=== PATIENT | male | born 1970 | race Caucasian/White ===

== ENCOUNTER 2022-11-01 17:58 | Inpatient (IN) ==
[2022-11-01] MEDS ORDERED: SODIUM CHLORIDE 0.9% 1000ML 1,000 ML IV ONE (18:22)
[2022-11-01 18:44] LABS: Basophils # (auto) 0.06 K/uL (0-0.2); Basophils % (auto) 0.8 %; Eosinophils # (auto) 0.14 K/uL (0-0.50); Eosinophils % (auto) 1.8 %; Hematocrit (blood only) 41.5 % (40.1-51.0); Hemoglobin 14.4 g/dl (14.0-18.0); Immature Granulocytes # (auto) 0.04 K/uL (0.00-0.02); Immature Granulocytes % (auto) 0.5 %; Lymphocytes # (auto) 2.35 K/uL (1.2-3.4); Lymphocytes % (auto) 30.1 %; Mean Corpuscular Hemoglobin 27.5 pg (25.0-34.0); Mean Corpuscular Hgb Conc 34.7 g/dL (32.0-36.0); Mean Corpuscular Volume 79.3 fL (80.0-100.0); Mean Platelet Volume 8.9 fL (9.4-12.4); Monocytes % (auto) 7.7 %; Neutrophils # (auto) 4.61 K/uL (1.4-6.5); Neutrophils % (auto) 59.1 %; Platelet Count 181 K/uL (130-400); RDW Coefficient of Variation 12.4 % (11.5-14.5); RDW Standard Deviation 35.3 fL (36.4-46.3); Red Blood Count 5.23 M/uL (4.63-6.08)
[2022-11-01] MEDS ORDERED: OPTIRAY 320 500ml IV ONE (18:47)
--- NOTE | 2022-11-01 18:55 | CT Scan Report ---
HEAD CT NONCONTRAST CT DOSE: 1187.67 mGy.cm HISTORY: Dizziness. neuro deficit, acute stroke suspected TECHNIQUE: Multiaxial CT images of the head were performed without the use of intravenous contrast. A utomated exposure control was utilized for this study. A dose lowering technique was utilized adheri ng to the principles of ALARA. Comparison: None. Findings: The paranasal sinuses and mastoid air cells are clear. The calvarium and skull base are int act. The ventricles and sulci are within normal limits. There is no mass, hematoma, midline shift, or acute infarct. Impression: No acute intracranial abnormality. ACT 112: Negative or not required by law. Electronically signed by: Eusebio Sherwood M.D. 11/01/2022 6:52 PM
[2022-11-01 19:01] LABS: Partial Thromboplastin Time 27.6 Seconds (21.0-31.0); Prothrombin Time 10.8 Seconds (9.0-12.0)
[2022-11-01 19:05] LABS: Albumin Globulin Ratio 1.7 (0.9-2); Albumin Level 4.3 gm/dl (3.4-5.0); BUN Creatinine Ratio 9.9 (10-20); Bilirubin,Total 0.7 mg/dl (0.2-1.0); Calcium 9.3 mg/dl (8.5-10.1); Creatinine Clr Calc Pharmacy 124.7 ml/min; Est GFR (African American) 118.4 ml/min; Est GFR (Non-African American) 102.2 ml/min; Globulin 2.5 gm/dl (2.5-4.0); Magnesium 1.9 mg/dl (1.7-2.4); Potassium 3.9 mmol/L (3.5-5.1); Total Protein 6.8 gm/dl (6.0-8.3)
--- NOTE | 2022-11-01 19:05 | CT Scan Report ---
HEAD & NECK CTA HISTORY: Dizziness. neuro deficit, acute stroke suspected TECHNIQUE: Multiaxial CT images of the head were performed following the intravenous administration o f contrast to evaluate the major cerebral vessels. Multiaxial CT images of the neck were also perform ed following the intravenous administration of contrast to evaluate the major cervical vessels. Maxim um intensity projection images were also obtained. A dose lowering technique was utilized adhering to the principles of ALARA. COMPARISON: None. FINDINGS: There is no mass, hematoma, midline shift, or acute infarct. Visualized intracranial internal carotid arteries, distal vertebral arteries, and basilar artery are widely patent. There is no significant s tenosis, occlusion, or aneurysm seen within the bilateral ACAs, right MCA, or cart pusher. Posterior c irculations are noted. A normal left MCA is not identified. There are few small and attenuated branch es of the left MCA . Therefore, these findings are highly suspicious for a proximal left MCA occlusio n. There is abrupt cut off within the hypoplastic proximal left MCA on image 95. The major dural veno us sinuses are patent. The aortic arch and proximal great vessels are widely patent. There is no significant stenosis, occ lusion, or dissection identified within the bilateral common carotid, internal carotid, or vertebral arteries. IMPRESSION: 1. A normal left MCA is not identified. There are few small and attenuated branches of the left MCA . Therefore, these findings are highly suspicious for an acute proximal left MCA occlusion. 2. No significant stenosis, occlusion, or dissection identified within the carotid or vertebral arter ies. ACT 112: Negative or not required by law. Electronically signed by: Eusebio Sherwood M.D. 11/01/2022 7:03 PM
--- NOTE | 2022-11-01 19:10 | XRay Report ---
XR chest 1V portable HISTORY: Dizziness. neuro deficit, acute stroke suspected COMPARISON: None. FINDINGS: The lungs are clear. Cardiac silhouette is normal in size. No pleural effusions. No pneumot horax. IMPRESSION: No acute process. ACT 112: Negative or not required by law. Electronically signed by: Eusebio Sherwood M.D. 11/01/2022 7:08 PM
[2022-11-01 19:11] LABS: Troponin I High Sensitivity 6.3 pg/ml (0-20)
[2022-11-01] MEDS ORDERED: ASPIRIN CHEW 324 MG PO STA (21:03)
[2022-11-01] MEDS ORDERED: ROSUVASTATIN CALCIUM 20 MG TAB PO STA (21:03)
[2022-11-01] MEDS ORDERED: CLOPIDOGREL BISULFATE 300 MG TAB PO STA (21:03)
--- NOTE | 2022-11-01 21:42 | History & Physical Report ---
Date of Service November 01, 2022 Assessment & Plan (1) Stroke-like symptoms: Plan: 52yo male with history of elevated blood pressure, former tobacco use presents with stroke-like symptoms. Last normal 11/01/22 at 03:00. Patient had weakness and clumsiness of LUE and LLE as well as some slurred speech and memory impairment noted by . Code Stroke called. CTA as above with findings at proximal left MCA thought to be incidental. Patient reports slow improvement in symptoms. He has been ordered ASA 324mg as well as Plavix 300mg and Crestor 20mg. Blood pressure is elevated at 193/110. -Admit to medical with telemetry -NIHSS daily -Neurological checks per protocol -Allow for permissive hypertension - keep BP < 200/100 -Check HgbA1C and Lipids -Check 2D echo with bubble study -Check MRI brain -Continue ASA 81mg po daily and Plavix 75mg po daily -Continue Crestor 20mg po daily -PT and OT evaluation appreciated -Neurology Consultation appreciated (2) Elevated blood pressure reading without diagnosis of hypertension: Plan: Patient most likely with undiagnosed hypertension. -Allow for permissive hypertension at this time -Monitor BP -Medications prior to DC if readings remain elevated F/E/N - Heplock. Electrolytes WNL. AHA diet as tolerated Ppx - SCDs Code - Full Dispo - Admit to medical with telemetry History of Present Illness Chief Complaint: stroke-like symptoms Primary Care Provider: Joe Calle MD Kolby Lundberg is a 52yo male presenting with stroke-like symptoms. Patient was in his usual state of health throughout the day yesterday. He had family over for Erna. He went to bed around 03:00, shortly after he went to bed his granddaughter asked him for a drink of water. He got up and went downstairs and reports feeling unbalanced, left leg felt "" and his left hand was clumsy. He spilled the water and had some difficulty walking. Patient reports still feeling off balance. His left upper extremity has improved markedly and feels near normal. He also feels that his LLE has imp roved slightly but is not quite normal. He denies headache, visual disturbance, chest pain, palpitations, dizziness, nausea, vomiting, diarrhea or constipation. His thinks that his speech was slightly slurred and his memory was impaired but did not note a facial droop. Patient had a similar episode 2 years ago while at work where he felt that he couldn't stand up due to weakness in his legs. He also had a similar episode 3- 4 weeks ago where he was unable to lift his left leg and his LUE felt heavy as well. Both of these episodes were self-limiting and he did not seek medical care. He does not see a PCP regularly. Is establishing with Dr. Calle from [facility] and is due to see him in 2-3 weeks for new patient encounter. He reports that his blood pressure has been high on several occasions. He is not formally diagnosed with hypertension. States that when he checks it is typically around 180/120. In the ER patient was seen by [facility] as Code Stroke. Images reviewed by attending Neurologist with attention to finding of possible acute proximal left MCA occlusion. Thought to be an incidental finding and not associated with presenting symptoms. ER Course: ASA 324mg Plavix 300mg Crestor 20mg NSS x 1L Allergies Allergy/AdvReac Type Severity Reaction Status Date / Time Penicillins Allergy Severe HAPPENED Verified 11/01/22 19:51 AN INFANT Home Medications Medication Instructions Recorded Confirmed Type coenzyme Q10 100 mg capsule 100 mg PO DAILY 11/01/22 11/01/22 History (CoQ-10) multivitamin 1 tab PO DAILY 11/01/22 11/01/22 History omega 9-kld-dsp-fish oil 1,000 mg 1 cap PO DAILY 11/01/22 11/01/22 History (120 mg-180 mg) capsule (Fish Oil) Past Med/Surg History Medical History (Updated 11/01/22 @ 21:53 by Lalita Medley DO) Elevated blood pressure reading without diagnosis of hypertension Stroke-like symptoms Surgical History (Updated 11/01/22 @ 21:54 by Lalita Medley DO) No significant past surgical history Family History (Updated 11/01/22 @ 21:54 by Lalita Medley DO) Other Parkinson disease Social History (Updated 11/01/22 @ 21:54 by Lalita Medley DO) Smoking Status: Former smoker Tobacco Type: E-cigarettes / Vaping Hx Alcohol Use: Yes Hx Substance Use: No Feels Safe at Home: Yes Review of Systems Review of Systems: All systems reviewed & are unremarkable except as noted in HPI & below Physical Exam Physical Exam: General: patient resting comfortably, NAD, non-toxic in appearance, AA&O x 4 Skin: warm, dry, intact, no rashes or lesions HEENT: NC/AT, PERRL, EOMI, anicteric sclera, conjunctiva without injection, external ear normal to inspection and nontender, nares patent, moist mucus membranes, dentition intact, no oropharyngeal lesions, neck supple, trachea midline, no LAD, no thyromegaly, no JVD Heart: +S1/S2, regular, no m/r/g Lungs: equal air entry bilaterally, no rales/rhonchi/wheezes Abd: +BS, soft, NT/ND, no masses/organomegaly/ascites Ext: warm, 2+ pulses in UE/LE bilaterally, no clubbing/cyanosis or edema Neuro: Patient AA&O x 3, speech clear and appropriate, CN II - XII grossly in tact, sensation to light touch intact in UE/LE bilaterally with exception of area of numbness to anterior right leg which patient states is chronic in nature, MS 5/5 in UE/LE bilaterally, no pronator drift noted, patient states it is more difficult to keep left leg elevated than right, [id number] and [id number] intact, gait not assessed Results & Data Results & Data ([facility]) Vital Signs (Past 12 Hours) Vital Signs Temp Pulse Resp BP Pulse Ox O2 Del Method 11/01/22 20:10 70 22 100 11/01/22 20:00 66 22 99 11/01/22 19:50 71 17 98 11/01/22 19:40 67 16 99 11/01/22 19:30 65 22 98 11/01/22 19:20 75 18 99 11/01/22 19:11 86 24 11/01/22 19:07 73 17 98 11/01/22 20:00 Room Air 11/01/22 18:22 99 11/01/22 18:02 36.7 C 76 20 193/110 H 100 Room Air Laboratory Results Laboratory Results WBC 7.80 K/ul (4.8-10.8) 11/01/22 18:30 RBC 5.23 M/uL (4.63-6.08) 11/01/22 18:30 Hgb 14.4 g/dl (14.0-18.0) 11/01/22 18:30 Hct 41.5 % (40.1-51.0) 11/01/22 18:30 MCV 79.3 fL (80.0-100.0) L 11/01/22 18:30 MCH 27.5 pg (25.0-34.0) 11/01/22 18: MCHC 34.7 g/dL (32.0-36.0) 11/01/22 18: RDW Std Deviation 35.3 fL (36.4-46.3) L 11/01/22 18: RDW Coeff of Thea 12.4 % (11.5-14.5) 11/01/22 18: Plt Count 181 K/uL (130-400) 11/01/22 18: MPV 8.9 fL (9.4-12.4) L 11/01/22 18:30 Immature Gran % (Auto) 0.5 % 11/01/22 18:30 Neut % (Auto) 59.1 % 11/01/22 18:30 Lymph % (Auto) 30.1 % 11/01/22 18:30 Chester % (Auto) 7.7 % 11/01/22 18:30 Eos % (Auto) 1.8 % 11/01/22 18: Baso % (Auto) 0.8 % 11/01/22 18:30 Neut # (Auto) 4.61 K/uL (1.4-6.5) 11/01/22 18:30 Lymph # (Auto) 2.35 K/uL (1.2-3.4) 11/01/22 18:30 Chester # (Auto) 0.60 K/uL (0.24-0.82) 11/01/22 18:30 Eos # (Auto) 0.14 K/uL (0-0.50) 11/01/22 18:30 Baso # (Auto) 0.06 K/uL (0-0.2) 11/01/22 18:30 Immature Gran # (Auto) 0.04 K/uL (0.00-0.02) H 11/01/22 18:30 PT 10.8 Seconds (9.0-12.0) 11/01/22 18:30 INR 1.0 (0.9-1.1) 11/01/22 18:30 APTT 27.6 Seconds (21.0-31.0) 11/01/22 18:30 PTT Ratio 1.0 11/01/22 18:30 Sodium 138 mmol/L (136-145) 11/01/22 18:30 Potassium 3.9 mmol/L (3.5-5.1) 11/01/22 18:30 Chloride 102 mmol/L (98-107) 11/01/22 18:30 Carbon Dioxide 30 mmol/L (21-32) 11/01/22 18:30 Anion Gap 6 (3-11) 11/01/22 18:30 BUN 8 mg/dl (6-23) 11/01/22 18:30 Creatinine 0.81 mg/dl (0.6-1.4) 11/01/22 18:30 Est Cr Clr Drug Dosing 124.7 ml/min 11/01/22 18:30 Est GFR ( Amer) 118.4 ml/min 11/01/22 18:30 Est GFR (Non-Af Amer) 102.2 ml/min 11/01/22 18:30 BUN/Creatinine Ratio 9.9 (10-20) L 11/01/22 18:30 Glucose 114 mg/dl (70-99(Fasting)) H 11/01/22 18:30 Calcium 9.3 mg/dl (8.5-10.1) 11/01/22 18:30 Phosphorus 3.0 mg/dl (2.5-4.9) 11/01/22 18:30 Magnesium 1.9 mg/dl (1.7-2.4) 11/01/22 18:30 Total Bilirubin 0.7 mg/dl (0.2-1.0) 11/01/22 18:30 AST 21 U/L (13-39) 11/01/22 18:30 ALT 24 U/L (7-52) 11/01/22 18:30 Alkaline Phosphatase 58 U/L (34-104) 11/01/22 18:30 Troponin I High Sens 6.3 pg/ml (0-20) 11/01/22 18:30 Total Protein 6.8 gm/dl (6.0-8.3) 11/01/22 18:30 Albumin 4.3 gm/dl (3.4-5.0) 11/01/22 18:30 Globulin 2.5 gm/dl (2.5-4.0) 11/01/22 18:30 Albumin/Globulin Ratio 1.7 (0.9-2) 11/01/22 18:30 TSH 1.429 uIu/ml (0.300-4.500) 11/01/22 18:30 Ethyl Alcohol mg/dL < 10.0 mg/dl (<10.0) 11/01/22 18:30 SARS-CoV-2, RNA, NAAT NEGATIVE (NEGATIVE) 11/01/22 19:10 Impressions Chest X-Ray 11/01/22 18:22 XR chest 1V portable HISTORY: Dizziness. neuro deficit, acute stroke suspected COMPARISON: None. FINDINGS: The lungs are clear. Cardiac silhouette is normal in size. No pleural effusions. No pneumothorax. IMPRESSION: No acute process. ACT 112: Negative or not required by law. Electronically signed by: Eusebio Sherwood M.D. 11/01/2022 7:[address] 11/01/22 18:[address] DOSE: 1187.67 mGy.cm HISTORY: Dizziness. neuro deficit, acute stroke suspected TECHNIQUE: Multiaxial CT images of the head were performed without the use of intravenous contrast. Automated exposure control was utilized for this study. A dose lowering technique was utilized adhering to the principles of ALARA. Comparison: None. Findings: The paranasal sinuses and mastoid air cells are clear. The calvarium and skull base are intact. The ventricles and sulci are within normal limits. There is no mass, hematoma, midline shift, or acute infarct. Impression: No acute intracranial abnormality. ACT 112: Negative or not required by law. Electronically signed by: Eusebio Sherwood M.D. 11/01/2022 6:52 PM Head CTA 11/01/22 18:22 HEAD & NECK CTA HISTORY: Dizziness. neuro deficit, acute stroke suspected TECHNIQUE: Multiaxial CT images of the head were performed following the intravenous administration of contrast to evaluate the major cerebral vessels. Multiaxial CT images of the neck were also performed following the intravenous administration of contrast to evaluate the major cervical vessels. Maximum intensity projection images were also obtained. A dose lowering technique was utilized adhering to the principles of ALARA. COMPARISON: None. FINDINGS: There is no mass, hematoma, midline shift, or acute infarct. Visualized intracranial internal carotid arteries, distal vertebral arteries, and basilar artery are widely patent. There is no significant stenosis, occlusion, or aneurysm seen within the bilateral ACAs, right MCA, or adjunct faculty instructor. Posterior circulations are noted. A normal left MCA is not identified. There are few small and attenuated branches of the left MCA . Therefore, these findings are highly suspicious for a proximal left MCA occlusion. There is abrupt cut off within the hypoplastic proximal left MCA on image 95. The major dural venous sinuses are patent. The aortic arch and proximal great vessels are widely patent. There is no significant stenosis, occlusion, or dissection identified within the bilateral common carotid, internal carotid, or vertebral arteries. IMPRESSION: 1. A normal left MCA is not identified. There are few small and attenuated branches of the left MCA . Therefore, these findings are highly suspicious for an acute proximal left MCA occlusion. 2. No significant stenosis, occlusion, or dissection identified within the carotid or vertebral arteries. ACT 112: Negative or not required by law. Electronically signed by: Eusebio Sherwood M.D. 11/01/2022 7:03 PM Neck CTA 11/01/22 18:22 HEAD & NECK CTA HISTORY: Dizziness. neuro deficit, acute stroke suspected TECHNIQUE: Multiaxial CT images of the head were performed following the intrave nous administration of contrast to evaluate the major cerebral vessels. Multiaxial CT images of the neck were also performed following the intravenous administration of contrast to evaluate the major cervical vessels. Maximum intensity projection images were also obtained. A dose lowering technique was utilized adhering to the principles of ALARA. COMPARISON: None. FINDINGS: There is no mass, hematoma, midline shift, or acute infarct. Visualized intracranial internal carotid arteries, distal vertebral arteries, and basilar artery are widely patent. There is no significant stenosis, occlusion, or aneurysm seen within the bilateral ACAs, right MCA, or adjunct faculty instructor. Posterior circulations are noted. A normal left MCA is not identified. There are few small and attenuated branches of the left MCA . Therefore, these findings are highly suspicious for a proximal left MCA occlusion. There is abrupt cut off within the hypoplastic proximal left MCA on image 95. The major dural venous sinuses are patent. The aortic arch and proximal great vessels are widely patent. There is no significant stenosis, occlusion, or dissection identified within the bilateral common carotid, internal carotid, or vertebral arteries. IMPRESSION: 1. A normal left MCA is not identified. There are few small and attenuated branches of the left MCA . Therefore, these findings are highly suspicious for an acute proximal left MCA occlusion. 2. No significant stenosis, occlusion, or dissection identified within the carotid or vertebral arteries. ACT 112: Negative or not required by law. Electronically signed by: Eusebio Sherwood M.D. 11/01/2022 7:03 PM ECG Additional Comments: EKG per my interpretation - study shows SR at 70bpm with occasional PAC, normal axis, HP=462, QRS=82, OUh=194, no acute ischemic changes, no prior studies available for comparison PG Care Time/CCT Total # of Minutes Spent Total Time Spent with Patient: Total time spent is greater than 50% in coordination of care (as documented) at patient's floor/unit and/or counseling patient: Coding Level of Care Code 87386 Initial Inpt Care Lvl 2 Diagnoses Stroke-like symptoms R29.90 Elevated blood pressure reading without diagnosis of hypertension R03.0
--- NOTE | 2022-11-01 23:39 | Emergency Department Note ---
Impression & Plan Stroke-like symptoms, Elevated blood pressure reading without diagnosis of hypertension, Cerebrovascular disease ED Provider Note NAME: DANIEL VIERA AGE: 52 SEX: M ARRIVES VIA: Walk-In INFORMANT: Patient ED PROVIDER(S): Doug Torres MD CHIEF COMPLAINT: Difficulty with balance, left sided weakness. PLAN: Disposition: Admit MEDICAL DECISION MAKING: The patient is a pleasant 52-year-old gentleman who presents to the emergency department accompanied by his for evaluation of symptoms of new difficulty with balance and symptoms of left upper and left lower extremity heaviness. Patient reports that he was last normal around 3 AM when he recalls going upstairs to watch TV in bed but then went to go get water for their grandchild and it was upon standing that the patient noticed his left side feel heavier than normal and he had difficulty with balance. He reports he even dropped the glass of water he had gotten for his grand child. His symptoms continued into today and ultimately was convinced by his to be evaluated. Otherwise denies fevers, chills, cough, congestion, GI or symptoms. He did not drink any significant alcohol for Erna and reports maybe had a single beer. On arrival the patient is in no acute distress, afebrile blood pressure 190/100s and vital signs otherwise stable. He appears clinically dry. He has subtle difficulty with gait where he did reach out with his arm to gain his balance upon ambulatory trial. He has no overt ataxia. Gross examination of upper and lower extremities does not reveal any overt weakness. 5/5 strength and SILT x 4 extremities. Cerebellar function intact including [id number], alternating palms, [id number]. Given the patient's last known well was at 3 AM no indication for stroke alert however CTA of his head and neck were ordered and expedited. WBC, H/H and platelets within normal limits. Chemistry without metabolic acidosis per electrolytes LFTs unremarkable. High-sensitivity troponin 6.3, within normal limits. TSH within normal limits. COVID-19 RNA, IMELDA test was negative. CT a of the head and neck were completed and there was question of proximal left MCA occlusion. However the location of this finding did not correlate to the patient's left-sided symptoms at this time. Appreciate consultation with [facility] tel[facility]roke neurology, Dr. Holland who evaluated the patient via the telestroke monitor and agrees that CTA findings of the left MCA are likely incidental and he more likely suspects right-sided cortical infarct given the patient's left-sided symptoms. Does not feel the patient needs to transfer at this time as left MCA findings are not necessarily acute and not related to his presentation. Recommends dual antiplatelet therapy with a load of 324 aspirin and 300 of Plavix. Subsequently to receive 81 and 75 of aspirin and Plavix, respectively. Recommends rosuvastatin 20 mg. Permissive hypertension with blood pressure less than 200/100s. Case was discussed with Dr. Medley, [facility] hospitalist, who will evaluate the patient for admission. Triage Nursing notes reviewed and agree them. Prior medical records reviewed Vital Signs: reviewed Differential diagnosis: Infection, dehydration, metabolic abnormality, hypo/hyperglycemia, electrolyte disturbance, anemia, hypoxia, cardiac sources, intracerebral event, toxicologic, neurologic, as well as other pathologies. ER treatment provided: See below. Diagnostics interpreted by me: ECG: Sinus rhythm with PACs, 70 bpm, nonspecific ST abnormality, no overt ST elevation or depression, QTC 425, QRS 82. Cardiac Monitoring: An order for continuous cardiac monitoring was placed and demonstrated sinus rhythm with PACs, 70 bpm. Laboratory studies: See below Imaging studies: See below Consultation(s): [facility], Dr. Holland [facility] hospitalist, Dr. Medley. HPI: The patient is a pleasant 52-year-old gentleman who presents to the emergency department accompanied by his for evaluation of symptoms of new difficulty with balance and symptoms of left upper and left lower extremity heaviness. Patient reports that he was last normal around 3 AM when he recalls going upstairs to watch TV in bed but then went to go get water for their grandchild and it was upon standing that the patient noticed his left side feel heavier than normal and he had difficulty with balance. He reports he even dropped the glass of water he had gotten for his grand child. His symptoms continued into today and ultimately was convinced by his to be evaluated. Otherwise denies fevers, chills, cough, congestion, GI or symptoms. He did not drink any significant alcohol for New Year's Erna and reports maybe had a single beer. ROS: See above HPI for pertinent positives & negatives. A total of 10 systems reviewed and were otherwise negative. VITALS:See Below PHYSICAL EXAMINATION: GENERAL: Awake, alert, well-appearing, in no distress HENT: Normocephalic, atraumatic. Oropharynx with dry mucous membranes and otherwise unremarkable. EYES: Normal conjunctiva. Sclera non-icteric. EOMI. No nystamgus. PEARRL. NECK: Supple. No nuchal rigidity. FROM. No JVD. RESPIRATORY: Clear to auscultation. CARDIAC: Regular rate, normal rhythm. Extremities warm and well perfused. Pulses equal. ABDOMEN: Soft, non-distended. No tenderness to palpation. No rebound or guarding. No masses. RECTAL: Deferred. MUSCULOSKELETAL: Chest examination reveals no tenderness. The back is symmetrical on inspection without obvious abnormality. There is no CVA tenderness to palpation. No joint edema. LOWER EXTREMITIES: Calves are equal size bilaterally and non-tender. No edema. No discoloration. NEURO: CN II-XII grossly intact. Speech is fluent. 5/5 strength and SILT x 4 extremities. Cerebellar function intact including [id number], alternating palms, [id number]. Mild balance difficulty with ambulation. SKIN: No rash or jaundice noted. 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 Beliefs That Will Affect Care: None Current Living Situation: Spouse Feels Safe at Home: Yes Assistive Devices: None Allergies Allergies Allergy/AdvReac Type Severity Reaction Status Date / Time Penicillins Allergy Severe HAPPENED Verified 11/01/22 19:51 AN Home Meds Home Medications Medication Instructions Recorded Confirmed coenzyme Q10 100 mg capsule 100 mg PO DAILY 11/01/22 11/01/22 (CoQ-10) multivitamin 1 tab PO DAILY 11/01/22 11/01/22 omega [id number]-fish oil 1,000 mg 1 cap PO DAILY 11/01/22 11/01/22 (120 mg-180 mg) capsule (Fish Oil) Results & Data (ED) Vital Signs Vital Signs - 24 hr 11/01/22 18:02 11/01/22 18:22 11/01/22 20:00 Temperature 36.7 C Temperature Source Temporal Artery Scan Pulse Rate 76 Pulse Rate from SpO2 Sensor Respiratory Rate 20 Respiratory Effort / Characteristics Non-Labored Spontaneous Non-Labored Non-Labored Respiratory Depth Normal Normal Normal Respiratory Pattern Regular Blood Pressure 193/110 H Blood Pressure Mean 137 Pulse Oximetry 100 99 Oxygen Delivery Method Room Air Room Air Sepsis Recent Fever Within 48 Hours No Sepsis New/Unexplained Change in Mental Status No Sepsis Action Taken by Nursing No Action Required 11/01/22 19:07 11/01/22 19:11 11/01/22 19:20 Temperature Temperature Source Pulse Rate 73 86 75 Pulse Rate from SpO2 Sensor 68 74 Respiratory Rate 17 24 18 Respiratory Effort / Characteristics Respiratory Depth Respiratory Pattern Blood Pressure Blood Pressure Mean Pulse Oximetry 98 99 Oxygen Delivery Method Sepsis Recent Fever Within 48 Hours Sepsis New/Unexplained Change in Mental Status Sepsis Action Taken by Nursing 11/01/22 19:30 11/01/22 19:40 11/01/22 19:50 Temperature Temperature Source Pulse Rate 65 67 71 Pulse Rate from SpO2 Sensor 66 67 70 Respiratory Rate 22 16 17 Respiratory Effort / Characteristics Respiratory Depth Respiratory Pattern Blood Pressure Blood Pressure Mean Pulse Oximetry 98 99 98 Oxygen Delivery Method Sepsis Recent Fever Within 48 Hours Sepsis New/Unexplained Change in Mental Status Sepsis Action Taken by Nursing 11/01/22 20:00 11/01/22 20:10 11/01/22 20:20 Temperature Temperature Source Pulse Rate 66 70 66 Pulse Rate from SpO2 Sensor 66 68 66 Respiratory Rate 22 22 16 Respiratory Effort / Characteristics Respiratory Depth Respiratory Pattern Blood Pressure Blood Pressure Mean Pulse Oximetry 99 100 100 Oxygen Delivery Method Sepsis Recent Fever Within 48 Hours Sepsis New/Unexplained Change in Mental Status Sepsis Action Taken by Nursing 11/01/22 20:28 11/01/22 20:28 11/01/22 20:30 Temperature Temperature Source Pulse Rate 67 69 Pulse Rate from SpO2 Sensor 68 70 Respiratory Rate 17 16 Respiratory Effort / Characteristics Respiratory Depth Respiratory Pattern Blood Pressure 182/112 H Blood Pressure Mean 135 Pulse Oximetry 99 100 Oxygen Delivery Method Sepsis Recent Fever Within 48 Hours Sepsis New/Unexplained Change in Mental Status Sepsis Action Taken by Nursing 11/01/22 20:40 11/01/22 20:50 11/01/22 21:00 Temperature Temperature Source Pulse Rate 71 66 63 Pulse Rate from SpO2 Sensor 69 66 Respiratory Rate 23 11 L 14 Respiratory Effort / Characteristics Respiratory Depth Respiratory Pattern Blood Pressure Blood Pressure Mean Pulse Oximetry 100 100 Oxygen Delivery Method Sepsis Recent Fever Within 48 Hours Sepsis New/Unexplained Change in Mental Status Sepsis Action Taken by Nursing 11/01/22 21:10 11/01/22 21:15 11/01/22 21:15 Temperature Temperature Source Pulse Rate 66 68 Pulse Rate from SpO2 Sensor 68 Respiratory Rate 18 25 H Respiratory Effort / Characteristics Respiratory Depth Respiratory Pattern Blood Pressure 181/114 H Blood Pressure Mean 136 Pulse Oximetry 100 Oxygen Delivery Method Sepsis Recent Fever Within 48 Hours Sepsis New/Unexplained Change in Mental Status Sepsis Action Taken by Nursing 11/01/22 21:20 11/01/22 21:30 11/01/22 21:40 Temperature Temperature Source Pulse Rate 69 64 79 Pulse Rate from SpO2 Sensor 67 65 79 Respiratory Rate 23 19 17 Respiratory Effort / Characteristics Respiratory Depth Respiratory Pattern Blood Pressure Blood Pressure Mean Pulse Oximetry 100 100 100 Oxygen Delivery Method Sepsis Recent Fever Within 48 Hours Sepsis New/Unexplained Change in Mental Status Sepsis Action Taken by Nursing Laboratory Data Attestation: I reviewed the patient's lab results. Result diagrams: 11/01/22 18:30 11/01/22 18:30 Lab Results 11/01/22 11/01/22 11/01/22 Range/Units 18:30 18:30 18:30 WBC 7.80 (4.8-10.8) K/ul RBC 5.23 (4.63-6.08) M/uL Hgb 14.4 (14.0-18.0) g/dl Hct 41.5 (40.1-51.0) % MCV 79.3 L (80.0-100.0) fL MCH 27.5 (25.0-34.0) pg MCHC 34.7 (32.0-36.0) g/dL RDW Std Deviation 35.3 L (36.4-46.3) fL RDW Coeff of Thea 12.4 (11.5-14.5) % Plt Count 181 (130-400) K/uL MPV 8.9 L (9.4-12.4) fL Immature Gran % (Auto) 0.5 % Neut % (Auto) 59.1 % Lymph % (Auto) 30.1 % [place] % (Auto) 7.7 % Eos % (Auto) 1.8 % Baso % (Auto) 0.8 % Neut # (Auto) 4.61 (1.4-6.5) K/uL Lymph # (Auto) 2.35 (1.2-3.4) K/uL [place] # (Auto) 0.60 (0.24-0.82) K/uL Eos # (Auto) 0.14 (0-0.50) K/uL Baso # (Auto) 0.06 (0-0.2) K/uL Immature Gran # (Auto) 0.04 H (0.00-0.02) K/uL PT 10.8 (9.0-12.0) Seconds INR 1.0 (0.9-1.1) APTT 27.6 (21.0-31.0) Seconds PTT Ratio 1.0 Sodium 138 (136-145) mmol/L Potassium 3.9 (3.5-5.1) mmol/L Chloride 102 (98-107) mmol/L Carbon Dioxide 30 (21-32) mmol/L Anion Gap 6 (3-11) BUN 8 (6-23) mg/dl Creatinine 0.81 (0.6-1.4) mg/dl Est Cr Clr Drug Dosing 124.7 ml/min Est GFR ( Amer) 118.4 ml/min Est GFR (Non-Af Amer) 102.2 ml/min BUN/Creatinine Ratio 9.9 L (10-20) Glucose 114 H (70-99(Fasting)) mg/dl Calcium 9.3 (8.5-10.1) mg/dl Phosphorus 3.0 (2.5-4.9) mg/dl Magnesium 1.9 (1.7-2.4) mg/dl Total Bilirubin 0.7 (0.2-1.0) mg/dl AST 21 (13-39) U/L ALT 24 (7-52) U/L Alkaline Phosphatase 58 (34-104) U/L Troponin I High Sens 6.3 (0-20) pg/ml Total Protein 6.8 (6.0-8.3) gm/dl Albumin 4.3 (3.4-5.0) gm/dl Globulin 2.5 (2.5-4.0) gm/dl Albumin/Globulin Ratio 1.7 (0.9-2) TSH (0.300-4.500) uIu/ml Ethyl Alcohol mg/dL (<10.0) mg/dl SARS-CoV-2, RNA, NAAT (NEGATIVE) 11/01/22 11/01/22 11/01/22 Range/Units 18:30 18:30 19:10 WBC (4.8-10.8) K/ul RBC (4.63-6.08) M/uL Hgb (14.0-18.0) g/dl Hct (40.1-51.0) % MCV (80.0-100.0) fL MCH (25.0-34.0) pg MCHC (32.0-36.0) g/dL RDW Std Deviation (36.4-46.3) fL RDW Coeff of Thea (11.5-14.5) % Plt Count (130-400) K/uL MPV (9.4-12.4) fL Immature Gran % (Auto) % Neut % (Auto) % Lymph % (Auto) % [place] % (Auto) % Eos % (Auto) % Baso % (Auto) % Neut # (Auto) (1.4-6.5) K/uL Lymph # (Auto) (1.2-3.4) K/uL [place] # (Auto) (0.24-0.82) K/uL Eos # (Auto) (0-0.50) K/uL Baso # (Auto) (0-0.2) K/uL Immature Gran # (Auto) (0.00-0.02) K/uL PT (9.0-12.0) Seconds INR (0.9-1.1) APTT (21.0-31.0) Seconds PTT Ratio Sodium (136-145) mmol/L Potassium (3.5-5.1) mmol/L Chloride (98-107) mmol/L Carbon Dioxide (21-32) mmol/L Anion Gap (3-11) BUN (6-23) mg/dl Creatinine (0.6-1.4) mg/dl Est Cr Clr Drug Dosing ml/min Est GFR ( Amer) ml/min Est GFR (Non-Af Amer) ml/min BUN/Creatinine Ratio (10-20) Glucose (70-99(Fasting)) mg/dl Calcium (8.5-10.1) mg/dl Phosphorus (2.5-4.9) mg/dl Magnesium (1.7-2.4) mg/dl Total Bilirubin (0.2-1.0) mg/dl AST (13-39) U/L ALT (7-52) U/L Alkaline Phosphatase (34-104) U/L Troponin I High Sens (0-20) pg/ml Total Protein (6.0-8.3) gm/dl Albumin (3.4-5.0) gm/dl Globulin (2.5-4.0) gm/dl Albumin/Globulin Ratio (0.9-2) TSH 1.429 (0.300-4.500) uIu/ml Ethyl Alcohol mg/dL < 10.0 (<10.0) mg/dl SARS-CoV-2, RNA, NAAT NEGATIVE (NEGATIVE) Administered Medications Discontinued Medications Aspirin (Aspirin Chew 324 Mg) 324 mg PO NOW STA Stop: 11/01/22 21:04 Last Admin: 11/01/22 22:04 Dose: 324 mg Documented By: CINDY Clopidogrel Bisulfate (Clopidogrel Bisulfate 300 Mg Tab) 300 mg PO NOW STA Stop: 11/01/22 21:04 Last Admin: 11/01/22 22:05 Dose: 300 mg Documented By: CINDY Sodium Chloride (Nss 1000ml) 1,000 mls @ 999 mls/hr IV .Q1H1M ONE Stop: 11/01/22 19:22 Last Infusion: 11/02/22 01:13 Dose: 0 mls/hr Documented By: Admin: 11/01/22 20:01 Dose: 999 mls/hr Documented By: CINDY Ioversol (Optiray 320 500ml) 113 ml IV ONCE ONE Stop: 11/01/22 18:48 Last Admin: 11/01/22 18:47 Dose: 113 ml Documented By: CARLITOS Rosuvastatin Calcium (Rosuvastatin Calcium 20 Mg Tab) 20 mg PO NOW STA Stop: 11/01/22 21:04 Last Admin: 11/01/22 22:05 Dose: 20 mg Documented By: CINDY Imaging Data Radiologist's Impression: Chest X-Ray 11/01/22 18:22 XR chest 1V portable HISTORY: Dizziness. neuro deficit, acute stroke suspected COMPARISON: None. FINDINGS: The lungs are clear. Cardiac silhouette is normal in size. No pleural effusions. No pneumothorax. IMPRESSION: No acute process. ACT 112: Negative or not required by law. Electronically signed by: Eusebio Sherwood M.D. 11/01/2022 7:[address] 11/01/22 18:[address] DOSE: 1187.67 mGy.cm HISTORY: Dizziness. neuro deficit, acute stroke suspected TECHNIQUE: Multiaxial CT images of the head were performed without the use of intravenous contrast. Automated exposure control was utilized for this study. A dose lowering technique was utilized adhering to the principles of ALARA. Comparison: None. Findings: The paranasal sinuses and mastoid air cells are clear. The calvarium and skull base are intact. The ventricles and sulci are within normal limits. T here is no mass, hematoma, midline shift, or acute infarct. Impression: No acute intracranial abnormality. ACT 112: Negative or not required by law. Electronically signed by: Eusebio Sherwood M.D. 11/01/2022 6:52 PM Head CTA 11/01/22 18:22 HEAD & NECK CTA HISTORY: Dizziness. neuro deficit, acute stroke suspected TECHNIQUE: Multiaxial CT images of the head were performed following the intravenous administration of contrast to evaluate the major cerebral vessels. Multiaxial CT images of the neck were also performed following the intravenous administration of contrast to evaluate the major cervical vessels. Maximum intensity projection images were also obtained. A dose lowering technique was utilized adhering to the principles of ALARA. COMPARISON: None. FINDINGS: There is no mass, hematoma, midline shift, or acute infarct. Visualized intracranial internal carotid arteries, distal vertebral arteries, and basilar artery are widely patent. There is no significant stenosis, occlusion, or aneurysm seen within the bilateral ACAs, right MCA, or survival specialist. Posterior circulations are noted. A normal left MCA is not identified. There are few small and attenuated branches of the left MCA . Therefore, these findings are highly suspicious for a proximal left MCA occlusion. There is abrupt cut off within the hypoplastic proximal left MCA on image 95. The major dural venous sinuses are patent. The aortic arch and proximal great vessels are widely patent. There is no significant stenosis, occlusion, or dissection identified within the bilateral common carotid, internal carotid, or vertebral arteries. IMPRESSION: 1. A normal left MCA is not identified. There are few small and attenuated b ranches of the left MCA . Therefore, these findings are highly suspicious for an acute proximal left MCA occlusion. 2. No significant stenosis, occlusion, or dissection identified within the carotid or vertebral arteries. ACT 112: Negative or not required by law. Electronically signed by: Eusebio Sherwood M.D. 11/01/2022 7:03 PM Neck CTA 11/01/22 18:22 HEAD & NECK CTA HISTORY: Dizziness. neuro deficit, acute stroke suspected TECHNIQUE: Multiaxial CT images of the head were performed following the intravenous administration of contrast to evaluate the major cerebral vessels. Multiaxial CT images of the neck were also performed following the intravenous administration of contrast to evaluate the major cervical vessels. Maximum intensity projection images were also obtained. A dose lowering technique was utilized adhering to the principles of ALARA. COMPARISON: None. FINDINGS: There is no mass, hematoma, midline shift, or acute infarct. Visualized intracranial internal carotid arteries, distal vertebral arteries, and basilar artery are widely patent. There is no significant stenosis, occlusion, or aneurysm seen within the bilateral ACAs, right MCA, or survival specialist. Posterior circulations are noted. A normal left MCA is not identified. There are few small and attenuated branches of the left MCA . Therefore, these findings are highly suspicious for a proximal left MCA occlusion. There is abrupt cut off within the hypoplastic proximal left MCA on image 95. The major dural venous sinuses are patent. The aortic arch and proximal great vessels are widely patent. There is no significant stenosis, occlusion, or dissection identified within the bilateral common carotid, internal carotid, or vertebral arteries. IMPRESSION: 1. A normal left MCA is not identified. There are few small and attenuated branches of the left MCA . Therefore, these findings are highly suspicious for an acute proximal left MCA occlusion. 2. No significant stenosis, occlusion, or dissection identified within the carotid or vertebral arteries. ACT 112: Negative or not required by law. Electronically signed by: Eusebio Sherwood M.D. 11/01/2022 7:03 PM Discharge Plan Visit Data Chief Complaint: Hypertension Stated Complaint: HIGH BLOOD PRESSURE, LEFT LEG AND ARM HEAVINESS ED Provider: Doug Torres Discharge Problem: Stroke-like symptoms, Elevated blood pressure reading without diagnosis of hypertension, Cerebrovascular disease Patient Disposition: Admitted As Inpatient Discharge Instructions Interventions: ED Discharge Assessment Last Done: 11/02/22 01:02
[2022-11-02] MEDS ORDERED: Flu Vaccine (Fluarix) 0.5mL SYR (Standard Dose) IM ONE (02:00)
[2022-11-02] MEDS ORDERED: GADOBUTROL 65ML VIAL IV ONE (04:40)
[2022-11-02 07:03] LABS: Basophils # (auto) 0.05 K/uL (0-0.2); Basophils % (auto) 0.6 %; Eosinophils # (auto) 0.17 K/uL (0-0.50); Eosinophils % (auto) 2.1 %; Hematocrit (blood only) 40.1 % (40.1-51.0); Hemoglobin 13.9 g/dl (14.0-18.0); Immature Granulocytes # (auto) 0.05 K/uL (0.00-0.02); Immature Granulocytes % (auto) 0.6 %; Lymphocytes # (auto) 2.03 K/uL (1.2-3.4); Lymphocytes % (auto) 25.4 %; Mean Corpuscular Hemoglobin 27.4 pg (25.0-34.0); Mean Corpuscular Hgb Conc 34.7 g/dL (32.0-36.0); Mean Corpuscular Volume 78.9 fL (80.0-100.0); Mean Platelet Volume 9.5 fL (9.4-12.4); Monocytes # (auto) 0.69 K/uL (0.24-0.82); Monocytes % (auto) 8.6 %; Neutrophils % (auto) 62.7 %; Platelet Count 173 K/uL (130-400); RDW Coefficient of Variation 12.3 % (11.5-14.5); RDW Standard Deviation 35.2 fL (36.4-46.3); Red Blood Count 5.08 M/uL (4.63-6.08); White Blood Count 7.99 K/ul (4.8-10.8)
[2022-11-02 08:04] LABS: Anion Gap 5 (3-11); BUN Creatinine Ratio 10.1 (10-20); Blood Urea Nitrogen 9 mg/dl (6-23); Calcium 8.2 mg/dl (8.5-10.1); Carbon Dioxide 28 mmol/L (21-32); Chloride 104 mmol/L (98-107); Creatinine Clr Calc Pharmacy 112.7 ml/min; Est GFR (African American) 113.9 ml/min; Est GFR (Non-African American) 98.3 ml/min; Glucose 136 mg/dl (70-99(Fasting)); Potassium 3.7 mmol/L (3.5-5.1); Sodium 137 mmol/L (136-145)
[2022-11-02 08:21] LABS: Chol HDL Ratio 8.2 (0-5); Cholesterol 205 mg/dl (0-200); HDL Cholesterol 25 mg/dl; Triglycerides 1128 mg/dl (0-150)
[2022-11-02 08:44] LABS: Estimated Average Glucose 134 mg/dl; Hemoglobin A1C 6.3 % (4.5-5.6)
[2022-11-02] MEDS ORDERED: ASPIRIN 81 MG ECTAB PO SCH (09:00)
[2022-11-02] MEDS ORDERED: CLOPIDOGREL BISULFATE 75 MG TAB PO SCH (09:00)
[2022-11-02] MEDS ORDERED: ROSUVASTATIN CALCIUM 20 MG TAB PO SCH (09:00)
--- NOTE | 2022-11-02 10:29 | Magnetic Resonance Report ---
MR brain wo/w con HISTORY: 52 years-old Male suspected CVA . Acute strokelike symptoms COMPARISON: Head CT November 01, 2022 TECHNIQUE: Multi planar multisequence MRI of the brain was obtained both with and without the use of 9.5 cc Gadavist FINDINGS: Laboratory Engineer localizer images demonstrate no gross extracranial abnormality. Study is mildly motion degraded . The imaged midline structures appear unremarkable. 4 mm focus of restricted diffusion is noted with in the posterior limb of the right internal capsule, image 13 series 5. No acute or subacute territor ial infarct. No acute intracranial hemorrhage, midline shift, abnormal extra-axial collection, hydrocephalus or in tracranial mass. No pathologic blooming artifact on the T2 star series. The volume and signal of the brain parenchyma is otherwise within normal limits. Cerebral venous sinuses and major arterial flow v oids appear patent. Abnormal appearance of the left middle cerebral artery is likely on a chronic bas is. No abnormal enhancement. IMPRESSION: 1. 4 mm acute to subacute appearing lacunar infarct involves the posterior limb of the right internal capsule. 2. No abnormal enhancement. ACT 112: Negative or not required by law. The above report was generated using voice recognition software. It may contain grammatical, syntax o r spelling errors. Electronically signed by: Mane Myers M.D. 11/02/2022 10:27 AM
--- NOTE | 2022-11-02 10:35 | Neurology Consultation ---
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 He is asymptomatic, with no focal neurologic findings, meningeal signs, or encephalopathy. MRI of the brain shows a very tiny right basal ganglia area acute stroke. There is no other small vessel ischemia noted on MRI. 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 He has multiple risk factors for stroke, including a longstanding have a history of cigarette smoking ( quit 5-6 months ago ), hypertension, hypertriglyceridemia and other dyslipidemia, and probable mild elevated glucose. He does not have heart disease. Recommendations: 1. awaiting echocardiogram results. 2. Continue clopidogrel 75 milligrams daily. 3. Control blood pressure as you are doing, aiming for a mean arterial pressure approximately 100 4. This patient would be a high dose statin candidate. 5. Control glucose 6. Increase activity as able overall, I spent a total of 60 minutes with this case including review of records, review of MRI films, and discussion of the case with the patient and RN at bedside, patient's via telephone, Dr. Myers, and Dr. Amaro including differential diagnosis and treatment options. History of Present Illness Reason for Consultation: Patient is a 52-year-old, who I was asked to see at the request of Dr. Medley, for neurologic consultation regarding possible stroke Requesting Physician: Dr. Medely Attending Physician: Casper Amaro MD History of Present Illness patient has a history of significant cigarette smoking of 30+ years at 1/2 packs per day. Fortunately, he quit about 5 or 6 months ago. He has been Vaping since. Otherwise he does not have any history of medical issues although he tells me his blood pressure has been high in the past and he was told that he had very high triglycerides in the past. He does not take medications except for a multiple vitamin and some [place] 3 Patient did well on October 31. He stayed up all evening and at 3 o'clock in the morning he went to bed on November 01. A grandchild wanted some water so he got up out of bed again and immediately noticed that his left leg was a little heavy and clumsy throwing his balance off a little bit. He did not fall. He felt that his left hand was clumsy and actually dropped a glass of water. He did sleep some and throughout the rest of the day he noted the left-sided clumsiness. His , who was an RN, noted some slurred speech and memory issues. The patient did not deny this.Finally, in the evening, he went to the emergency room. He arrived to the emergency room at 18:02 with a temperature 36.7, pulse 76 and regular, respiratory rate 20, blood pressure 193/110, and O2 saturation 100 percent. His gait was a little bit off but he was not frankly weak. He was given loading doses of aspirin and Plavix after tele Stroke consultation at [facility]. CT angiography showed occluded left middle cerebral artery which was asymptomatic. CT scan of the head showed no new or old strokes. CT angiography of neck was unremarkable. Echocardiogram is pending. CBC and Chem profile were unremarkable. TSH was normal. Glucose today was 136. Hemoglobin A1c was 6.3 and triglycerides were 1128. Total cholesterol was 205. The patient feels essentially back to baseline with no weakness or clumsiness of left side, no speech or mentation problems and no headache or pain. The patient had MRI of the brain this morning and I reviewed this with Dr. Myers. He has a very tiny acute right basal ganglia area acute stroke likely ischemic in nature. the patient had no other abnormalities and no old small vessel ischemic disease was identified. Allergies Allergy/AdvReac Type Severity Reaction Status Date / Time Penicillins Allergy Severe HAPPENED Verified 11/01/22 19:51 AN INFANT Home Medications Medication Instructions Recorded Confirmed Type coenzyme Q10 100 mg capsule 100 mg PO DAILY 11/01/22 11/01/22 History (CoQ-10) multivitamin 1 tab PO DAILY 11/01/22 11/01/22 History omega 8-epw-fai-fish oil 1,000 mg 1 cap PO DAILY 11/01/22 11/01/22 History (120 mg-180 mg) capsule (Fish Oil) Patient History Medical History Elevated blood pressure reading without diagnosis of hypertension Stroke-like symptoms Surgical History H/O wisdom tooth extraction No significant past surgical history Family History Other Parkinson disease Social History Smoking Status: Former smoker Tobacco Type: E-cigarettes / Vaping Age Started Using Tobacco: 20; Age Quit Using Tobacco: 51; packs per day: 1.5; Smoking End Date: 5 months ago; Hx Alcohol Use: Yes ( heavier in the past but occasionally only currently) Hx Substance Use: No Preferred Language: Belarusian Communication Ability: Effective 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 Required: No Beliefs That Will Affect Care: None Current Living Situation: Spouse current occupational status: employed 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 Feels Safe at Home: Yes Assistive Devices: None Review of Systems Constitutional: no fever, no fatigue and no weakness Eyes: no diplopia, no eye pain and no worsening vision Ear, Nose, Mouth, Throat: no ear pain, no tinnitus, no hearing loss, no dizziness, no snoring, no hoarseness and no dysphagia Respiratory: no cough and no dyspnea Cardiovascular: no chest pain, no palpitations and no lightheadedness Gastrointestinal: no abdominal pain, no nausea and no vomiting Musculoskeletal: no back pain, no neck pain, no radicular pain, no joint pain and no myalgia Integumentary: no rash and no lesions Neurologic: no gait abnormality, no localized weakness, no generalized weakness, no tingling, no numbness, no tremor(s), no abnormal movements, no headache(s), no abnormal speech, no confusion and no memory loss Psychiatric: no depression, no irritability, no anxiety, no difficulty concentrating, no confusion and no hallucinations Endocrine: no fatigue and no flushing Hematologic / Lymphatic: no easy bleeding and no easy bruising Allergy / Immunological: no urticaria and no problem reported Exam (Neuro) Physical Exam: The patient is right-handed. The patient is awake, alert, and attentive. Speech is normal without any aphasia or dysarthria. The patient can name objects, repeat phrases, and has normal spontaneous speech. Mentation and thought processes are intact, with orientation to person, place and time, and normal fund of knowledge. Attention and concentration are normal. Mood and affect are normal and appropriate. General appearance and grooming are normal. Short and long-term memory are intact. Pupils are 4 mm bilaterally and reactive to light. Extraocular eye muscles are intact without nystagmus. Visual acuity and visual dey seem normal grossly to confrontation. There are no deficits to sensation in the face in all 3 distributions of the fifth cranial nerve bilaterally. Corneal reflexes are positive bilaterally. Facial strength and symmetry was normal bilaterally. Hearing seems normal bilaterally. Palate moves well without asymmetry. There is normal sternoc leidomastoid and trapezius (shoulder shrug) strength bilaterally. Tongue is midline with good strength bilaterally. Neck has a full range of motion without discomfort. There are no cervical bruits bilaterally. There are no cranial or ocular bruits. Heart is without murmur. There is a regular rhythm and rate. Cervical, thoracic, and lumbar spine are nontender to palpation. Gait is narrow based, with good arm swing, turns, and stance. With outstretched arms there is no drift. There are no resting, postural, or action tremors. There is no ataxia with finger to nose testing. There is good f acility in the hands. No other abnormal involuntary movements are noted. The left foot was clumsier than the right foot with rapid repetitive movement. Motor strength is 5/5 diffusely in the arms bilaterally including deltoids, biceps, triceps, brachioradialis, wrist flexors and extensors, safety instruction police officer, and intrinsic hand muscles. Motor strength is 5/5 diffusely in the legs bilaterally including hip flexors, quadriceps, hamstrings, gastrocnemius, tibialis anterior, tibialis posterior, and Peroneii muscles. Toe extensors are normal and there is good bulk in the extensor digitorum brevis muscles bilaterally. There was no weakness bilaterally. The limbs have good tone without rigidity or spasticity. There is no atrophy noted in the muscles. Muscle bulk is normal, there is no tenderness to palpati on, no myotonia to percussion, and no fasciculations seen. Sensory examination is intact to touch and pin throughout all 4 limbs diffusely. Reflexes are 2/4 in the biceps, triceps, brachioradialis, quadriceps, and Achilles tendons bilaterally. There is no clonus bilaterally. Toes are downgoing with plantar stimulation bilaterally. Peripheral pulses are present and of normal quality distally in all 4 limbs. There is no peripheral edema noted in the limbs. Results & Data ([facility]) Vital Signs (Past 12 Hours) Vital Signs Temp Pulse Pulse Resp BP BP Pulse Ox 11/02/22 06:00 55 L 11/02/22 07:43 36.8 C 66 20 166/96 H 100 11/02/22 05:16 36.6 C 65 18 158/89 H 98 11/02/22 01:10 76 11/02/22 01:27 11/02/22 01:27 36.9 C 65 18 173/93 H 98 11/02/22 01:10 36.9 C 65 18 173/93 H 98 11/02/22 01:02 11/01/22 23:00 68 16 97 11/01/22 23:00 189/84 H 11/01/22 22:50 69 18 97 11/01/22 22:40 71 19 98 11/01/22 22:30 78 19 99 11/01/22 22:20 76 18 98 O2 Del Method 11/02/22 06:00 11/02/22 07:43 Room Air 11/02/22 05:16 Room Air 11/02/22 01:10 11/02/22 01:27 Room Air 11/02/22 01:27 Room Air 11/02/22 01:10 Room Air 11/02/22 01:02 Room Air 11/01/22 23:00 11/01/22 23:00 11/01/22 22:50 11/01/22 22:40 11/01/22 22:30 11/01/22 22:20 PG Care Time/CCT Total # of Minutes Spent Total Time Spent with Patient: Total time spent is greater than 50% in coordination of care (as documented) at patient's floor/unit and/or counseling patient: Coding Level of Care Code 01211 Inpt Consult Level 5 Diagnoses Acute CVA (cerebrovascular accident) I63.9 Hypertension I10 Dyslipidemia E78.5 Acute left-sided weakness R53.1 Time Spent (min) 60
[2022-11-02] MEDS ORDERED: lisinopril 10 MG TAB PO SCH (10:45)
--- NOTE | 2022-11-02 12:28 | Discharge Summary ---
Date of Service November 02, 2022 Admission HPI Per Admitting Provider Kolby Lundberg is a 52yo male presenting with stroke-like symptoms. Patient was in his usual state of health throughout the day yesterday. He had family over for [place]. He went to bed around 03:00, shortly after he went to bed his granddaughter asked him for a drink of water. He got up and went downstairs and reports feeling unbalanced, left leg felt "" and his left hand was clumsy. He spilled the water and had some difficulty walking. Patient reports still feeling off balance. His left upper extremity has improved markedly and feels near normal. He also feels that his LLE has improved slightly but is not quite normal. He denies headache, visual disturbance, chest pain, palpitations, dizziness, nausea, vomiting, diarrhea or constipation. His thinks that his speech was slightly slurred and his memory was impaired but did not note a facial droop. Patient had a similar episode 2 years ago while at work where he felt that he couldn't stand up due to weakness in his legs. He also had a similar episode 3- 4 weeks ago where he was unable to lift his left leg and his LUE felt heavy as well. Both of these episodes were self-limiting and he did not seek medical care. He does not see a PCP regularly. Is establishing with Dr. Calle from [facility] and is due to see him in 2-3 weeks for new patient encounter. He reports that his blood pressure has been high on several occasions. He is not formally diagnosed with hypertension. States that when he checks it is typically around 180/120. In the ER patient was seen by [facility] as Code Stroke. Images reviewed by attending Neurologist with attention to finding of possible acute proximal left MCA occlusion. Thought to be an incidental finding and not associated with presenting symptoms. ER Course: ASA 324mg Plavix 300mg Crestor 20mg NSS x 1L Principal Diagnosis Acute ischemic right basal ganglia CVA, uncontrolled hypertension, hypertriglyceridemia Discharge Exam General-alert and oriented x3, no fevers, no chills HEENT-head atraumatic and normocephalic, pupils equal and reactive to light, extraocular muscles intact Neck-no lymphadenopathy or thyromegaly, trachea midline Chest-clear to auscultation percussion. No rales wheezing or rhonchi Cardiac-regular rate and rhythm, normal S1 and S2 Abdomen-normal bowel sounds, nontender, no hepatosplenomegaly Extremities-no cyanosis, clubbing, or edema Neuro-cranial nerves II through XII intact, motor and sensory function within normal limits, strength symmetrical , no focal deficits Psych-normal affect, normal mood Discharge Data Allergies Allergy/AdvReac Type Severity Reaction Status Date / Time Penicillins Allergy Severe HAPPENED Verified 11/01/22 19:51 AN Consultations 11/01/22 21:03 ED Decision to Admit Stat 11/02/22 01:10 Consult Neurology Routine Ordered Studies 11/01/22 18:22 CT angio head w con Stat CT angio neck with con Stat CT head/brain wo con Stat 11/02/22 01:10 MR brain wo/w con Routine Hospital Course (1) Elevated blood pressure reading without diagnosis of hypertension: Due to essential hypertension. Lisinopril has been added. We will follow. (2) Hypertriglyceridemia: High-dose statin therapy has been initiated (3) Hypertension: Lisinopril therapy has been initiated (4) Acute CVA (cerebrovascular accident): Case discussed with neurology. Brain MRI scan reveals evidence of ischemic right basal ganglia CVA. The left MCA occlusion is old. Neurological deficits have resolved Plan Discharge home today after discussion with neurology. He will continue on Plavix, statin, lisinopril. He will remain off work until seen by his PCP and [facility]. Total Time Total Time Spent Total Time Spent (In Minutes): 40 minutes Discharge Plan Discharge Items Patient Disposition: Home - Self-Care Reason For Visit: SUSPECTED CVA Discharge Diagnosis: Ischemic right basal ganglia CVA, uncontrolled hypertension, hypertriglyceridem ia Activity: Resume your previous activity Activity Comment: Off work until further notice Non-emergency contact: Primary Care Provider Call non-emergency contact if: you have any medication questions Follow-up/Referrals: Joe Calle MD [Primary Care Provider] - Diet: Heart Healthy Addtl Attending Provider Instructions: Take medications as directed. Off work until further notice. Follow-up with your primary care provider soon as possible Pending Studies at Discharge: No Stand-Alone Forms: My [employer], Work/School Release, Smoking Cessation Medications and DC Order Prescriptions: New clopidogrel 75 mg Tablet 75 mg PO QAM Qty: 30 0RF atorvastatin 40 mg Tablet 80 mg PO QAM Qty: 30 0RF lisinopril 10 mg Tablet 10 mg PO QAM Qty: 30 0RF Continued multivitamin Tablet 1 tab PO DAILY coenzyme Q10 [CoQ-10] 100 mg Capsule 100 mg PO DAILY omega 0-txa-wci-fish oil [Fish Oil] 1,000 mg (120 mg-180 mg) Capsule 1 cap PO DAILY Discharge Orders: Discharge Order (Routine); Ordered 11/02/22 Ordered By: Casper Bell/Other Patient Handouts: Prediabetes, 5 Steps for Eating Healthier Admission Data Admit Date/Time: 11/01/22 21:41 Attending Provider: Casper Amaro Admit Provider: Lalita Medley Primary Care Provider: Joe Calle Other Providers: Tenzin Henley ; Lalita Medley Coding Level of Care Code D/C DAY MANAGEMENT >30 MINS Diagnoses Elevated blood pressure reading without diagnosis of hypertension R03.0 Hypertriglyceridemia E78.1 Hypertension I10 Acute CVA (cerebrovascular accident) I63.9
--- NOTE | 2022-11-02 16:50 | XCELERA ---
[id number]
--- NOTE | 2022-11-02 18:53 | Electrocardiogram Report ---
Test Reason : Blood Pressure : / mmHG Vent. Rate : 070 BPM Atrial Rate : 070 BPM P-R Int : 126 ms QRS Dur : 082 ms QT Int : 394 ms P-R-T Axes : 056 055 031 degrees QTc Int : 425 ms Poor data quality, interpretation may be adversely affected Sinus rhythm with Premature atrial complexes Possible Left atrial enlargement Nonspecific ST abnormality Abnormal ECG No previous ECGs available Confirmed by Giancarlo Rivero ([id number]) on 11/02/2022 6:53:48 PM Referred By: REFERRED SELF Confirmed By:Tarik Rivero
[2022-11-03] MEDS ORDERED: ATORVASTATIN 40 MG TAB PO SCH (09:00)
== END 2022-11-02 13:33 | disposition home or self-care (01) | DRG 66 ==
LOC: ED 17:58 → 2N 21:41 → SUATTDRO 21:41 → 2N 11-02 01:02